=== PATIENT | male | born 1955 | race Caucasian/White ===

== ENCOUNTER 2018-07-07 09:10 | Outpatient (REF) | payer BC, SELFPAY | END 2018-07-07 09:11 | LOC: NCHCN 09:10 | PROVIDERS: PCP Internal Medicine; Visit Provider Internal Medicine | DX: I10 Essential (primary) hypertension (principal) | CPT/HCPCS: 80048 ==

== ENCOUNTER 2018-07-10 11:09 | Outpatient (REF) | payer BC, SELFPAY ==
[2018-07-10 22:03] LABS: BUN 23 mg/dL (7-18); CREATININE 1.23 mg/dL (0.70-1.30); Calcium 8.7 mg/dL (8.5-10.1); Chloride 105 mmol/L (98-107); Estimated GFR 59.82 (mL/min/1.73m2); Glucose 118 mg/dL (70-100); Potassium 4.5 mmol/L (3.5-5.1); Sodium 143 mmol/L (136-145)
== END 2018-07-10 11:10 ==
LOC: NCHCN 11:09
PROVIDERS: PCP Internal Medicine; Visit Provider Internal Medicine
DX: I10 Essential (primary) hypertension (principal)
CPT/HCPCS: 80048

== ENCOUNTER 2019-07-06 12:00 | Outpatient (REF) | payer BC, SELFPAY ==
[2019-07-06 21:00] LABS: Anion Gap 12.8 mmol/L (3-11); BUN 24 mg/dL (7-18); CO2 23.2 mmol/L (21.0-32.0); CREATININE 1.19 mg/dL (0.70-1.30); Calcium 8.8 mg/dL (8.5-10.1); Calculated LDL 118 mg/dL; Chloride 105 mmol/L (98-107); Cholesterol 193 mg/dL (50-200); Glucose 93 mg/dL (70-100); HDL Cholesterol 55 mg/dL (40-60); Potassium 4.5 mmol/L (3.5-5.1); Sodium 141 mmol/L (136-145); Triglyceride 101 mg/dL (30-150)
== END 2019-07-06 12:20 ==
LOC: NCHCN 12:00
PROVIDERS: PCP Internal Medicine; Visit Provider Internal Medicine
DX: I10 Essential (primary) hypertension (principal); M19.90 Unspecified osteoarthritis, unspecified site; E66.9 Obesity, unspecified
CPT/HCPCS: 80048; 80061; 83721

== ENCOUNTER 2020-10-03 08:55 | Outpatient (REF) | payer BC, SELFPAY ==
[2020-10-03 22:22] LABS: Anion Gap 10.3 mmol/L (3-11); BUN 26 mg/dL (7-18); CO2 26.7 mmol/L (21.0-32.0); CREATININE 1.36 mg/dL (0.70-1.30); Calcium 8.9 mg/dL (8.5-10.1); Chloride 104 mmol/L (98-107); Estimated GFR 52.93 (mL/min/1.73m2); Glucose 94 mg/dL (74-106); Potassium 4.4 mmol/L (3.5-5.1); Sodium 141 mmol/L (136-145)
== END 2020-10-03 09:15 ==
LOC: NCHCN 08:55
PROVIDERS: PCP Nurse Practitioner Family; Visit Provider Nurse Practitioner Family
DX: I10 Essential (primary) hypertension (principal)
CPT/HCPCS: 80048

== ENCOUNTER 2021-09-24 08:34 | Outpatient (REF) | payer BC, SELFPAY ==
[2021-09-24 15:48] LABS: ALT 38 U/L (16-63); AST 16 U/L (15-37); Alkaline Phosphatase 76 U/L (46-116); Anion Gap 11.5 mmol/L (3-11); BUN 25 mg/dL (7-18); Bilirubin, Total 0.4 mg/dL (0.2-1.0); CO2 27.5 mmol/L (21.0-32.0); CREATININE 1.3 mg/dL (0.70-1.30); Calcium 9.1 mg/dL (8.5-10.1); Calculated LDL 127 mg/dL (<100); Chloride 103 mmol/L (98-107); Cholesterol 210 mg/dL (<200); Estimated GFR 55.58 (mL/min/1.73m2); Glucose 95 mg/dL (74-106); HDL Cholesterol 57 mg/dL (40-60); Potassium 4.7 mmol/L (3.5-5.1); Sodium 142 mmol/L (136-145); Total Protein 7.5 g/dL (6.4-8.2); Triglyceride 130 mg/dL (<150)
== END 2021-09-24 08:35 | disposition home or self-care (01) ==
LOC: NCHCN 08:34
PROVIDERS: PCP Nurse Practitioner Family; Visit Provider Internal Medicine
DX: I10 Essential (primary) hypertension (principal); E66.9 Obesity, unspecified; Z00.00 Encounter for general adult medical examination without abnormal findings
CPT/HCPCS: 80053; 80061

== ENCOUNTER 2022-10-01 14:56 | Outpatient (REF) | payer BC, SELFPAY ==
[2022-10-04 09:21] LABS: PSA, Screening 0.6 ng/mL (<=4.5)
== END 2022-10-01 14:57 | disposition home or self-care (01) ==
LOC: NCHCN 14:56
PROVIDERS: PCP Nurse Practitioner Family; Visit Provider Internal Medicine
DX: Z12.5 Encounter for screening for malignant neoplasm of prostate (principal)
CPT/HCPCS: 80053; 80061; 84153

== ENCOUNTER 2022-10-05 16:21 | Outpatient (REF) | payer BC, SELFPAY ==
[2022-10-05 21:29] LABS: ALT 33 U/L (16-63); AST 27 U/L (15-37); Alkaline Phosphatase 76 U/L (46-116); Anion Gap 8.1 mmol/L (3-11); BUN 26 mg/dL (7-18); Bilirubin, Total 0.5 mg/dL (0.2-1.0); CO2 25.9 mmol/L (21.0-32.0); CREATININE 1.3 mg/dL (0.70-1.30); Calcium 9.1 mg/dL (8.5-10.1); Calculated LDL 56 mg/dL (<100); Chloride 105 mmol/L (98-107); Cholesterol 131 mg/dL (<200); Estimated GFR 60.96 (mL/min/1.73m2); Glucose 97 mg/dL (74-106); HDL Cholesterol 62 mg/dL (40-60); Potassium 4.2 mmol/L (3.5-5.1); Sodium 139 mmol/L (136-145); Total Protein 7.7 g/dL (6.4-8.2); Triglyceride 69 mg/dL (<150)
== END 2022-10-05 16:22 | disposition home or self-care (01) ==
LOC: NCHCN 16:21
PROVIDERS: PCP Nurse Practitioner Family; Visit Provider Internal Medicine
DX: I10 Essential (primary) hypertension (principal); E78.5 Hyperlipidemia, unspecified; Z12.5 Encounter for screening for malignant neoplasm of prostate
CPT/HCPCS: 80053; 80061

== ENCOUNTER 2023-10-07 19:43 | Outpatient (REF) | payer MEDICARE, SELFPAY ==
[2023-10-07 14:18] LABS: Anion Gap 8.6 mmol/L (3-11); BUN 27 mg/dL (7-18); CO2 27.4 mmol/L (21.0-32.0); CREATININE 1.3 mg/dL (0.70-1.30); Calcium 9.6 mg/dL (8.5-10.1); Chloride 105 mmol/L (98-107); Estimated GFR 60.59 (mL/min/1.73m2); Glucose 106 mg/dL (74-106); Potassium 4.6 mmol/L (3.5-5.1); Sodium 141 mmol/L (136-145)
== END 2023-10-07 19:44 | disposition home or self-care (01) ==
LOC: NCHCN 19:43
PROVIDERS: PCP Nurse Practitioner Family; Visit Provider Internal Medicine
DX: I10 Essential (primary) hypertension (principal)
CPT/HCPCS: 80048

== ENCOUNTER 2024-07-05 09:22 | Outpatient (REF) | payer OTHER, SELFPAY ==
--- OUTSIDE RECORDS SUMMARY | 2024-07-05 09:25 | XMS_ITS | Data Portability ---
Author Organization [place] - [facility], [facility] [place] [address] Care Team Providers Care Sealer Dry Cell Name Role Phone [facility] [employer] Assessment Encounter Date Assessment Date Assessment LastModified by Organization Details LastModified Time 10/10/2023 10/10/2023 Patient presente d to office today for their Medicare Annual Wellness Visit. Personalized preventive care plan printed and reviewed with patient. Education was provided on healthy nutrition, including a diet rich in fruits and vegetables, minimizing simple carbohydrates, salt, and saturated fats. Encouraged regular cardiovascular exercise such as walking at least 30 minutes daily, 5 times per week. Emphasized preventive health measures and educated pt on fall prevention and community-based lifestyle interventions to help reduce health risks and promote healthy living. EKG done today and was wnl He will work on lifestyle changes to address obesity and recent weight gain, return in 3 mo. [email or web address] Not available 10/10/2023 10:34:19 Plan of Treatment Reminders Order Date Submit Date Provider Last Modified By Organization Details Last Modified Time Details Appointments FASTING LABS 2023 08:00A M Not available Not available Not available Follow Up 2023 11:10A M Not available Not available Not available Lab BMP, serum or plasma 2022 023 [email or web address] [facility] (Lab Direct), [address] [place], [address], 10/07/2023 08:56:06 noninvasi ve colorecta l cancer DNA + occult blood screening , QL, stool 2022 023 [email or web address] [facility] (Cologuard Orders Only), [address], [address], [place], [address], 06/15/2024 14:56:41 CBC [address] [facility] (Registration ), [address] [place] [address] [place], [address], 07/05/2024 09:12:50 BMP, serum or plasma [address] [facility] (Registration ), [address] [place] [address] [place], [address], 07/05/2024 09:12:50 lipid panel, serum [address] [facility] (Registration ), [address] [place] [address] [place], [address], 07/05/2024 09:12:50 Referral eye care referral - needs new eye care provider. hx of HTN 2022 023 [facility] [place], [address] [facility], [facility] [address], [place], [address], 10/10/2023 16:13:12 Procedures None recorded. Surgeries None recorded. Imaging US, screening for abdominal aortic aneurysm [address] - Radiology, [address] [place] [address], [address], 03/07/2024 15:39:28 electroca rdiogram 2022 023 [email or web address] [facility], [address], [place], [address], 10/10/2023 10:17:25 Medication Orders triamcino lone acetonide 0.1 % topical ointment 2022 023 [id number], [address], [place], [place], [id number], 10/10/2023 10:40:09 celecoxib 200 mg capsule [address] [id number], [address], [place], [place], [id number], 01/11/2024 08:59:27 atorvasta tin 20 mg tablet [address] [id number], [address], [place], [place], [id number], 01/11/2024 08:59:27 Patient TargetsNo targets recorded. Patient Instructions Encounter Date Encounter Id Patient Instructions Last Modified By Organization Details Last Modified Time 10/10/2023 [id number] advance care planning: care instructions [email or web address] Not available 10/10/2023 10:17:23 medicare preventive services guide (male 74 rs and under) Not available 10/10/2023 10:17:23 Go for a walk at least once a day. Stop celebrex as a trial Try taking 2 extra strength tylenol three times a day. Try doing puzzles or word searches Clean Try fruit as a snack like an apples Use frozen vegetables instead of canned Rice cakes are another good snack Not available 10/10/2023 09:40:54 Discussed and explained advance directives such as standard forms to the {{patient caregiv er patient and caregiver}}. Face to face discussion lasted for a duration of ___ minutes. Not available 10/10/2023 09:53:08 Reason for Referral Eye Care Referral for Adult health examination needs new eye care provider. hx of HTN Referring Physician: Izzy Delgado, Internal Medicine, Encounter Date: 10/10/2023 Results Created Date Observation Date Name Description Value Unit Range Abnormal Flag LastModifiedBy Organization Detail LastModifiedTime 10/07/2010/07/2023 gluco se, QN [mass /volu me], blood glucose ser 106 mg/dL 74-106 normal Not Available [facility] [address], [place], [address], 06/22/2024 22:42:42 10/07/2010/07/2023 CMP, serum or plasm a aniongap 8.6 mmol/ L 3-11 normal Not Available Not Available 06/22/2024 22:42:41 10/07/20 23 10/07/2023 CMP, serum or plasm a BUN (blood urea nitrogen), serum or plasma 27 mg/dL 7-18 high Not Available Not Available 22:42:41 10/07/2010/07/2023 CMP, serum or plasm a calcium, qn, serum or plasma 9.6 mg/dL 8.5-10 .1 normal Not Available Not Available 06/22/2024 22:42:41 10/07/2010/07/2023 CMP, serum or plasm a chloride, serum or plasma 105 mmol/ L 98-107 normal Not Available Not Available 06/22/2024 22:42:41 10/07/2010/07/2023 CMP, serum or plasm a CO2, (carbon dioxide), total, serum or plasma 27.4 mmol/ L 21.0-3 2.0 normal Not Available Not Available 06/22/2024 22:42:41 10/07/2010/07/2023 CMP, serum or plasm a creatinine, serum or plasma 1.3 mg/dL 0.70-1 .30 normal Not Available Not Available 06/22/2024 22:42:41 10/07/20 23 10/07/2023 CMP, serum or plasm a eGFR 60.59 (?) mL/mi n/1.7 3m2 mL/min /1.73m 2 Not Available Not Available 06/22/2024 22:42:41 10/07/20 23 10/07/2023 CMP, serum or plasm a potassium, serum or plasma 4.6 mmol/ L 3.5-5. 1 normal Not Available Not Available 06/22/2024 22:42:41 10/07/20 23 10/07/2023 CMP, serum or plasm a sodium, serum or plasma 141 mmol/ L 136-14 5 normal Not Available Not Available 06/22/2024 22:42:41 10/10/20 23 10/18/2023 ricardo beyer am No observ ation record ed. [facility] [address], [place], [address], 10/18/2023 10:15:24 10/10/20 23 ricardo beyer am No observ ation record ed. Not Available 10/10/2023 10:05:46 Result Notes None recorded. Problems Name Status Onset Date Resolution Date Notes Provider Name and Address Organization Details Recorded Time Essential hypertension Active 200901/04/2019 - Comments only - Alex Ceja MD - Reasonable control on his current medication. Plan: Continue current regimen. Problem Code: I10; Problem Code Type: ICD-10; MD [address], [place], [address] , [facility] 3 20:16:47 Adult health examination Active 2009 Problem Code: Z00.00; Problem Code Type: ICD-10; MD [address]ael [address], [place], [address] , [facility] 3 20:16:47 Obesity Active 2009 Problem Code: E66.9; Problem Code Type: ICD-10; MD Isael [address], [place], [address] , [facility] 3 20:16:47 Pain of right shoulder joint Completed 201607/23/2017 Problem Code: M25.511; Problem Code Type: ICD-10; Not Available [facility] 3 05:11:51 Verruca vulgaris Completed 201612/25/2016 Problem Code: B07.8; Problem Code Type: ICD-10; Not Available [facility] 3 05:11:51 Screening for malignant neoplasm of colon Completed 201802/03/2019 Problem Code: Z12.11; Problem Code Type: ICD-10; Not Available [facility] 3 05:11:51 Chest pain Completed 201801/27/2019 01/04/2019 - Comments only - Alex Ceja MD - I do not think he is describing angina. His 10-year cardiac risk is about 10%, compounded by his positive family history. Plan: Reassurance today. I did review with him thentypical pattern for anginal pain being associated with physical effort. He knows to call if he becomes aware of such a pattern. I also offered consideration of an exercise tolerance test if symptoms persist without relief. Problem Code: R07.89; Problem Code Type: ICD-10; Not Available [facility] 3 05:11:51 Osteoarthriti s Active 2018 Problem Code: M19.90; Problem Code Type: ICD-10; MD Isael [address], [facility] [address] , [facility] 3 20:16:47 Meralgia paresthetica of left leg Completed 201901/03/2021 Problem Code: G57.12; Problem Code Type: ICD-10; Not Available [facility] 3 05:11:52 Hyperlipidemi a Active 2020 Problem Code: E78.5; Problem Code Type: ICD-10; MD Isael [address], [facility] [address] , [facility] 3 20:16:47 Screening for malignant neoplasm of prostate Active 2020 Problem Code: Z12.5; Problem Code Type: ICD-10; MD Isael [address], [facility] [address] , [facility] 3 20:16:47 Ingrowing nail Active 2021 Problem Code: L60.0; Problem Code Type: ICD-10; MD Isael [address], [facility] [address] , [facility] 3 20:16:47 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 Problem Code: H35.443; Problem Code Type: ICD-10; MD Isael [address], [address] 3 20:16:47 Regular astigmatism of left eye Active 2021 Problem Code: H52.222; Problem Code Type: ICD-10; MD Isael [address], [address] 3 20:16:47 Snoring Active 2021 Problem Code: R06.83; Problem Code Type: ICD-10; MD Isael [address], [address] 3 20:16:47 Pain of joint of knee Active 2021 Problem Code: M25.569; Problem Code Type: ICD-10; MD Isael [address], [address] 3 20:16:46 Ex-smoker Completed 200708/17/2023 Not Available [facility] 3 05:11:54 Epigastric pain Completed 201707/07/2018 Problem Code: R10.13; Problem Code Type: ICD-10; Not Available [facility] 3 05:11:54 General examination of patient Completed 200908/17/2023 Problem Code: Z00.8; Problem Code Type: ICD-10; Not Available [facility] 3 05:11:54 Hypertensive disorder Completed 200908/17/2023 Not Available [facility] 3 05:11:54 Acute conjunctiviti s Completed 201807/18/2019 Problem Code: H10.30; Problem Code Type: ICD-10; Not Available [facility] 3 05:11:55 Former light tobacco smoker Active [address], [place], [address] , [facility] 3 20:19:42 History of psoriasis Active [address], [place], [address] , [facility] 3 10:36:57 Problem Notes None recorded. Procedures Surgical History None recorded. Imaging Results Imaging Date Name Status LastModified by Organization Details LastModified Time 10/18/2023 electrocardiogram completed [id number] [facility] [address], [place], [address], 10/18/2023 10:15:24 10/10/2023 electrocardiogram completed Informa tion not available 10/10/2023 10:05:46 Procedure Notes None recorded. Medical Equipment None Reported. Allergies No known drug allergies Medications Name Sig Start Date Stop Date Status Note LastModified by Organization Details LastModified Time celecoxib 200 mg capsule TAKE 1 CAPSULE BY MOUTH EVERY DAY active Not Available Not Available No t Available atorvasta tin 20 mg tablet TAKE 1 TABLET BY MOUTH EVERY DAY active Not Available Not Available No t Available lisinopri l 20 mg-hydroc hlorothia zide 12.5 mg tablet TAKE 1 TABLET BY MOUTH DAILY active Not Available Not Available No t Available chlorthal idone 25 mg tablet take 1 tablet daily 12/17 completed Must make appointm ent to be seen by MD Not Available Not Available Not Available triamcino lone acetonide 0.1 % topical ointment APPLY THIN LAYER TOPICALL Y TO THE AFFECTED AREA TWICE DAILY active Not Available Not Available No t Available aspirin 81 mg tablet once a day 10/08 completed Not Available Not Available Not Available Baby Aspirin 81 mg chewable tablet 1 qd 2009 active Not Available Not Available Not Avai lable Aspir-81 mg tablet,de layed release 1 daily 2009 active Not Available Not Available Not Avai lable naproxen 500 mg tablet 1CAP twice daily 09/22 completed Not Available Not Available Not Available Celebrex 1CAP qd 10/26 completed Not Available Not Available Not Available Vitals Date Recorded Body height Provider Name an d Address Organization Details Last Updated DateTime 10/10/2023 179.832 cm IZZY DELGADO MD [address], [place], [address], [facility] 10/10/2023 08:22:04 Date Recorded Body mass index (BMI) Body weight Body temperature Oxygen saturation Oxygen saturation in Arterial blood by Pulse oximetry Heart rate Systolic blood pressure Diastolic blood pressure Provider Name and Address Organization Details Last Updated DateTime 3 49.2 kg/m2 192198. 2 g 98.4 [degF] 95 % 95 % 81 /min 116 mm[Hg] 82 mm[Hg] MITCH SOLANO MA [facility] 3 09:20:15 Date Recorded Body height Body mass index (BMI) Body weight Body temperature Oxygen saturation Oxygen saturation in Arterial blood by Pulse oximetry Heart rate Systolic blood pressure Diastolic blood pressure Provider Name and Address Organization Details Last Updated DateTime 4 179.832 cm 47.3 kg/m2 190166. 03 g 98.2 [degF] 96 % 96 % 89 /min 122 mm[Hg] 76 mm[Hg] BESSIE SHAIKH LPN [facility] 4 08:38:20 Social History Question Answer Notes LastModified by Organizat ion Details LastModified Time Tobacco Smoking Status Former Smoker MITCH SOLANO MA null, [facility] 10/10/2023 09:10:51 Do You Have An Advance Directive? No Information not available 10/10/2023 Are You Currently Employed? No Retired From [email or web address] Information not available 10/10/2023 What Type Of Diet Are You Following? REGULAR Information not available 10/10/2023 How Many Days Of Moderate To Strenuous Exercise, Like A Brisk Walk, Did You Do In The Last 7 Days? 0 [email or web address] Information not available 10/10/2023 When Did You Quit Smoking? 6-10yearssi [email or web address] [email or web address] Information not available 10/10/2023 What Is Your Current Pack Years? 30ormorepac [email or web address] Information not available 01/11/2024 At What Age Did You Start Smoking Tobacco? 15 [email or web address] Information not available 10/10/2023 How Much Tobacco Do You Smoke? 1 PPD Information not available 01/11/2024 How Many Years Have You Smoked Tobacco? 30 Information not available 01/11/2024 Do You Have Any Dietary Restrictions? No [email or web address] Information not available 10/10/2023 Do You Or Have You Ever Used Any Other Forms Of Tobacco Or Nicotine? No [email or web address] Information not available 10/10/2023 Sex: Male Functional Status Question Answer Note LastModified by Organization D etails LastModified Time What is your exercise level? None [email or web address] Information not available 10/10/2023 Mental Status None recorded. Family History Relationship Description Onset Age of this Age Resolved Age Notes Notes:*Problem: Mother: dece ased, 8-9 years ago age b. 1933, HTN, DJD Father: age 80 cause cancer 4 brothers: 2 w. HTN; 1 (b. 1952) s/p CABG Family History of: Medical History No medical history recorded. Immunizations Vaccine Type Date Status Provider Name and Address Organization Details Recorded Time COVID-19, mRNA, LNP-S, PF, cristine-sucrose, 30 mcg/0.3 mL 10/10/20[address] completed MD [address], [place], [address], [facility] 10/10/2023 10:37:31 Influenza, high-dose, quadrivalent, PF 10/10/2023 completed MD [address], [place], [address], [facility] 10/10/2023 10:40:03 Tdap 01/04/2019 completed Not Available [facility] 05:46:49 zoster live 07/20/2017 completed Not Available [facility] 09/30/2023 05:46:49 Influenza, split virus, quadrivalent, PF 10/02/2021 completed Not Available [facility] 09/30/2023 05:46:49 Influenza, split virus, quadrivalent, PF 10/03/2020 completed Not Available [facility] 09/30/2023 05:46:49 zoster recombinant 01/04/[address] [facility] 09/30/2023 05:46:49 zoster recombinant 07/07/[address] [facility] 09/30/2023 05:46:49 Influenza, high-dose, quadrivalent, PF 10/08/2022 completed Not Available [facility] 09/30/2023 05:46:50 COVID-19, mRNA, LNP-S, PF, 30 mcg/0.3 mL dose 12/29/2020 completed Not Available [facility] 09/30/2023 05:46:50 COVID-19, mRNA, LNP-S, PF, 30 mcg/0.3 mL dose 01/29/2021 completed Not Available [facility] 09/30/2023 05:46:50 COVID-19, mRNA, LNP-S, PF, 30 mcg/0.3 mL dose 10/02/2021 completed Not Available [facility] 09/30/2023 05:46:50 Pneumococcal conjugate PCV20, polysaccharide [id number] conjugate, adjuvant, PF 12/10/2022 completed Not Available [facility] 09/30/2023 05:46:50 COVID-19, mRNA, LNP-S, PF, 30 mcg/0.3 mL dose, cristine-sucrose 05/14/2022 completed Not Available [facility] 09/30/2023 05:46:51 COVID-19, mRNA, LNP-S, bivalent, PF, 30 mcg/0.3 mL dose 10/08/2022 completed Not Available [facility] 09/30/20 05:46:51 Past Encounters Encounter ID Performer Location Encounter Start Date Encounter Closed Date Diagnosis/Indication Diagnosis SNOMED-CT Code [id number] IZZY DELGADO MD [address] [address] 10/10/2023 07:47:47 10/10/2023 10:11:20 Adult health examination 983456906 Essential hypertension 82305649 Obesity 471883594 Screening for malignant neoplasm of colon 251722537 Ex-smoker 9635091 Active or passive immunization 670342879 History of psoriasis 161 684742 Pain of joint of knee 10 25594830 [id number] Ama Lawson [address] [address] 10/07/2023 07:33:06 10/07/2023 07:48:34 Essential hypertension 06192270 [id number] IZZY DELGADO MD [address] [address] 01/11/2024 08:18:15 01/11/2024 08:55:28 Essential hypertension 40564551 Obesity 354919966 Pain of joint of knee 10 64963011 Osteoarthritis 170874505 Hyperlipidemia 52194025 [id number] Aubrie Orozco RN [address] [address] 07/05/2024 07:49:01 07/05/2024 08:14:58 Essential hypertension 10774582 Hyperlipidemia 12667574 Health Concerns Section Related Observation LastModified by Organization Detai ls LastModified Time None Recorded Concern Status LastModified by Organization Details LastModified Time None Recorded Advance Directives Directive N: Payers Encounter Date Sequence Insurance Name Policy Number Policy Arana Covered Member ID Arana Member ID Guarantor Name 10/07/2023 1 [place] Cecilio Sheridan [id number] Cecilio Sheridan 10/10/2023 1 [place] Cecilio Sheridan [id number] Cecilio Sheridan 01/11/2024 [place] - [facility] (MEDICARE) Cecilio Sheridan [id number] Cecilio Sheridan 01/11/2024 1 [employer] (MEDICARE REPLACEMENT HMO) Cecilio Sheridan [id number] Cecilio Sheridan 07/05/2024 1 [employer] (MEDICARE REPLACEMENT HMO) Cecilio Sheridan [id number] Cecilio Sheridan Notes Date Note Type Note Provider Name and Address Organization Details Recorded Time 10/10/2023 text/html HPI Notes: Medic are Annual Wellness Visit Reported by patient. Depression Risk: never feels sad, empty, or tearful; no loss of interest in activities; no significant changes in weight; no sleep disturbances or insomnia; no agitation; no loss of energy; no feelings of worthlessness or guilt; no thoughts of suicide; no history of depression; no history of mood disorders Orientation: oriented to person, place, time Concentration and Memory: no decreased concentrating ability; no memory lapses or loss; does not forget words Speech/Motor difficulties: no speech difficulties; no difficulty expressing formulated concepts; no difficulty with fine manipulative tasks; no difficulty writing/copying; no slowed reaction time; does not knock things over when trying to pick them up Hearing: no loss of hearing Vision: no vision problems; wears reading galsses Activities of Daily Living: able to bathe with limited or no assistance; able to control urination and bowels; able to dress with limited or no assistance; able to feed self with limited or no assistance; able to get out of chair or bed with limited or no assistance; able to groom with limited or no assistance; able to toilet with limited or no assistance Instrumental Activities of Daily Living: able to do house work with limited or no assistance; able to grocery shop with limited or no assistance; able to manage medications with limited or no assistance; able to manage money with limited or no assistance; able to prepare meals with limited or no assistance; able to use the phone with limited or no assistance; able to manage transportation with limited or no assistance Falls Risk Assessment: no frequent falls while walking; no fall in the past year; no fall since last visit; no dizziness/vertigo Home Safety: no unsafe angeles hazards; no unsafe stairs; no unsafe gas appliances; working smoke/CO detectors; wears protective head gear for biking/high velocity; use of seatbelts; no high risk sexual behavior; no vision or hearing loss while driving; no firearms; has hand bars in the bathroom/shower; good lighting in the home He retired in March and has gained a lot of weight since then. He has been a lot less active since then. He plans to increase his walking. He continues on the celebrex daily for chronic knee and ankle pain. He hasn't tried tylenol for his aches and pains. IZZY DELGADO MD [address], [place], [address], [facility]. 10/10/2023 10:41:25 01/11/2024 text/html HPI Notes: Here for f/u obesity/weight gain, HTN, OA knees. He has been walking on the treadmill, getting up to 20 minutes, had been doing 4 times a week. HE has lost weight, feels good about progress. He doesn't feel the knees while on the treadmill, but afterward the knees hurt. He has backed off the treadmill recently for this reason. He is also using the peddler a couple of days a week too. the left is worse than the right. He did back off the celebrex but the pain has worsened. The tylenol is helping some but not as much, taking 1 g bid most of the time. No swelling more than usual. He has been more conscious of what he eats. No other concerns today. IZZY DELGADO MD [address], [place], [address], [facility]. 01/11/2024 09:01:07
--- OUTSIDE RECORDS SUMMARY | 2024-07-05 09:25 | XMS_ITS | Clinical Summary ---
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
--- OUTSIDE RECORDS SUMMARY | 2024-07-05 09:25 | XMS_ITS | Continuity of Care Document ---
Author Organization [place] - [facility] Address [address] [place] [address] Care Team Providers Care Contact Acid Plant Operator Helper Name Role Phone [facility] General Counselor [phone] Assessment No assessment recorded. Plan of Treatment Reminders Order Date Submit Date Provider Last Modified By Organization Details Last Modified Time Details Appointments [facility] 2023 08:00A M Not available Not available Not available Follow Up 20 2023 11:10A M Not available Not available Not available Lab CBC [address] [facility] (Registration ), [address] [place] [address] [place], [address], 07/05/2024 09:12:50 BMP, serum or plasma [address] [facility] (Registration ), [address] [place] [address] [place], [address], 07/05/2024 09:12:50 lipid panel, serum [address] [place] [address] Laboratory (Registration ), [address] [place] [address] [place], [address], 07/05/2024 09:12:50 Referral None recorded . Procedures None recorded . Surgeries None recorded . Imaging None recorded . Medication Orders None recorded . Patient TargetsNo targets recorded. Patient InstructionsNo instructions recorded. Reason for Referral Eye Care Referral for Adult health examination needs new eye care provider. hx of HTN Referring Physician: Izzy Delgado, Internal Medicine, Encounter Date: 10/10/2023 Problems Name Status Onset Date Resolution Date Notes Provider Name and Address Organization Details Recorded Time Essential hypertension Active 200901/04/2019 - Comments only - Alex Ceja MD - Reasonable control on his current medication. Plan: Continue current regimen. Problem Code: I10; Problem Code Type: ICD-10; MD Isael [address], [place], [address] , [facility] 3 20:16:47 Adult health examination Active 2009 Problem Code: Z00.00; Problem Code Type: ICD-10; MD Isael [address], [facility] [address] , [facility] 3 20:16:47 Obesity Active 2009 Problem Code: E66.9; Problem Code Type: ICD-10; MD Isael [address], [facility] [address] , [facility] 3 20:16:47 Pain of right shoulder joint Completed 201607/23/2017 Problem Code: M25.511; Problem Code Type: ICD-10; Not Available [facility] 3 05:11:51 Verruca vulgaris Completed 201612/25/2016 Problem Code: B07.8; Problem Code Type: ICD-10; Not Available [facility] 3 05:11:51 Screening for malignant neoplasm of colon Completed 201802/03/2019 Problem Code: Z12.11; Problem Code Type: ICD-10; Not Available [facility] 3 05:11:51 Chest pain Completed 201801/27/2019 01/04/2019 [...] R07.89; Problem Code Type: ICD-10; Not Available [facility] 3 05:11:51 Osteoarthriti s Active 2018 Problem Code: M19.90; Problem Code Type: ICD-10; MD Isael [address], [facility] [id number] [place] [address] 3 20:16:47 Meralgia paresthetica of left leg Completed 201901/03/2021 Problem Code: G57.12; Problem Code Type: ICD-10; Not Available [facility] 3 05:11:52 Hyperlipidemi a Active 2020 Problem Code: E78.5; Problem Code Type: ICD-10; MD Isael [address], [address] 3 20:16:47 Screening for malignant neoplasm of prostate Active 2020 Problem Code: Z12.5; Problem Code Type: ICD-10; MD Isael [address], [address] 3 20:16:47 Ingrowing nail Active 2021 Problem Code: L60.0; Problem Code Type: ICD-10; MD Isael [address], [place] [address] , [facility] 3 20:16:47 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 3 20:16:47 Snoring Active 2021 Problem Code: R06.83; Problem Code Type: ICD-10; MD Isael [address], [place], [address] , [facility] 3 20:16:47 Pain of joint of knee Active 2021 Problem Code: M25.569; Problem Code Type: ICD-10; MD Isael [address], [facility] [address] , [facility] 3 20:16:46 Ex-smoker Completed 200708/17/2023 Not Available [facility] 3 05:11:54 Epigastric pain Completed 201707/07/2018 Problem Code: R10.13; Problem Code Type: ICD-10; Not Available [facility] 3 05:11:54 General examination of patient Completed 200908/17/2023 Problem Code: Z00.8; Problem Code Type: ICD-10; Not Available [facility] 3 05:11:54 Hypertensive disorder Completed 200908/17/2023 Not Available [facility] 3 05:11:54 Acute conjunctiviti s Completed 201807/18/2019 Problem Code: H10.30; Problem Code Type: ICD-10; Not Available [facility] 3 05:11:55 Former light tobacco smoker Active [address], [place], [address] , [facility] 3 20:19:42 History of psoriasis Active [address], [place], [address] , [facility] 3 10:36:57 Problem Notes None recorded. Medical Equipment None Reported. [...] Not Available Not Available Not Available Vitals None Recorded Social History Question Answer Notes LastModified by Organizat ion Details LastModified Time Tobacco Smoking Status Former Smoker MITCH SOLANO [place] null, [place] - [facility] 10/10/2023 09:10:51 Do You Have An Advance Directive? No Information not available 10/10/2023 Are You Currently Employed? No Retired From [employer] Information not available 10/10/2023 What Type Of Diet Are You Following? REGULAR [email or web address] Information not available 10/10/2023 How Many Days Of Moderate To Strenuous Exercise, Like A Brisk Walk, Did You Do In The Last 7 Days? 0 [email or web address] Information not available 10/10/2023 When Did You Quit Smoking? 6-10yearssi ncelastciga rette [email or web address] Information not available 10/10/2023 What Is Your Current Pack Years? 30ormorepac kyears Information not available 01/11/2024 At What Age Did You Start Smoking Tobacco? 15 [email or web address] Information not available 10/10/2023 How Much Tobacco Do You Smoke? 1 PPD Information not available 01/11/2024 How Many Years Have You Smoked Tobacco? 30 Information not available 01/11/2024 Do You Have Any Dietary Restrictions? No [email or web address] Information not available 10/10/2023 Do You Or Have You Ever Used Any Other Forms Of Tobacco Or Nicotine? No [email or web address] Information not available 10/10/2023 Sex: Male Functional Status Question Answer Note LastModified by Organization D etails LastModified Time What is your exercise level? None [email or web address] Information not available 10/10/2023 Mental Status None [...] mL 10/10/2023 completed MD [address], [place], [address], [facility] 10/10/2023 10:37:31 Influenza, high-dose, quadrivalent, PF 10/10/2023 completed MD [address]ael [address], [place], [address], [facility] 10/10/2023 10:40:03 Tdap 01/04/2019 completed Not Available [facility] 05:46:49 zoster live 07/20/2017 completed Not Available [facility] 09/30/2023 05:46:49 Influenza, split virus, quadrivalent, PF 10/02/2021 completed Not Available [facility] 09/30/2023 05:46:49 Influenza, split virus, quadrivalent, PF 10/03/2020 completed Not Available [facility] 09/30/2023 05:46:49 zoster recombinant 01/04/2019 completed Not Available [facility] 09/30/2023 05:46:49 zoster recombinant 07/07/2018 completed Not Available [facility] 09/30/2023 05:46:49 Influenza, high-dose, quadrivalent, PF 10/08/2022 completed Not Available [facility] 09/30/2023 05:46:50 COVID-19, mRNA, LNP-S, PF, 30 mcg/0.3 mL dose 12/29/2020 completed Not Available [facility] 09/30/2023 05:46:50 COVID-19, mRNA, LNP-S, PF, 30 mcg/0.3 mL dose 01/29/2021 completed Not Available [facility] 09/30/2023 05:46:50 COVID-19, mRNA, LNP-S, PF, 30 mcg/0.3 mL dose 10/02/2021 completed Not Available [facility] 09/30/2023 05:46:50 Pneumococcal conjugate PCV20, polysaccharide [id number] conjugate, adjuvant, PF 12/10/2022 completed Not Available [facility] 09/30/2023 05:46:50 COVID-19, mRNA, LNP-S, PF, 30 mcg/0.3 mL dose, cristine-sucrose 05/14/2022 completed Not Available [facility] 09/30/2023 05:46:51 COVID-19, mRNA, LNP-S, bivalent, PF, 30 mcg/0.3 mL dose 10/08/2022 completed Not Available [facility] 09/30/20 05:46:51 Past Encounters Encounter ID Performer Location Encounter Start Date Encounter Closed Date Diagnosis/Indication Diagnosis SNOMED-CT Code [id number] Aubrie Orozco RN [address] [address] 07/05/2024 07:49:01 07/05/2024 08:14:58 Essential hypertension [id number] Hyperlipidemia [id number] Health Concerns Section Related Observation LastModified by Organization Detai ls LastModified Time None Recorded Concern Status LastModified by Organization Details LastModified Time None Recorded Payers Encounter Date Sequence Insurance Name Policy Number Policy Arana Covered Member ID Arana Member ID Guarantor Name 07/05/2024 1 [facility] (MEDICARE REPLACEMENT HMO) Cecilio Sheridan [id number] Cecilio Sheridan
--- OUTSIDE RECORDS SUMMARY | 2024-07-05 09:25 | XMS_ITS | Encounter Summary ---
Author Organization [facility] Address [address] [place] [address] Care Team Providers Care Staff Reporter Name Role Phone Unavailable Primary Care Provider Unavailabl e Encounter Details Date Type Department Care Team (Late st Contact Info) Description 10/02/2022 Lab Requisition [facility] Pathology & Laboratory Medicine - [facility] [address] [place] [address] Outr Resulting Lab, Provider Social History Tobacco Use Types Packs/Day Years Used Date Smoking Tobacco: Never Assessed Sex and Gender Information Value Date Recorded Sex Assigned at Not on file Gender Identity Not on file Sexual Orientation Not on file documented as of this encounter Plan of Treatment Not on file documented as of this encounter Procedures Procedure Name Priority Date/Time Associated Diagnosis Comments PSA TOTAL, DIAGNOSTIC Routine 10/01/2022 7:25 EST documented in this encounter Results * PSA TOTAL, DIAGNOSTIC (10/01/2022 7:25 EST) PSA 0.6 <=4.5 ng/mL 10/04/2022 9:16 EST [facility] Blood VENOUS BLOOD / Unknown 10/01/2022 7:25 EST 10/03/2022 17:15 EST Narrative [facility] - 10/04/2022 9:16 EST NOTE: Serum PSA concentration should not be interpreted as absolute evidence for the presence or absence of malignant disease. Assayed on Siemens ADVIA Centaur XPT using chemiluminescent technology.??Values obtained by using different assay methods cannot be used interchangeably. Provider Outr Resulting Lab CHEMISTRY & BLOOD GAS ORDERABLES [facility] [address] [place] [address] documented in this encounter Visit Diagnoses Not on filedocumented in this encounter
--- OUTSIDE RECORDS SUMMARY | 2024-07-05 09:25 | XMS_ITS | Referral Summary ---
Author Organization [facility] Address [address] [place] [address] Care Team Providers Care Svp Chief Marketing Officer Name Role Phone Unavailable Primary Care Provider Unavailabl e Social History Tobacco Use Types Packs/Day Years Used Date Smoking Tobacco: Never Assessed Sex and Gender Information Value Date Recorded Sex Assigned at Not on file Gender Identity Not on file Sexual Orientation Not on file Plan of Treatment Not on file
--- OUTSIDE RECORDS SUMMARY | 2024-07-05 09:25 | XMS_ITS ---
Author Organization Unknown Address [address] [place] [phone] Phone Care Team Providers Care Commercial Sales Specialist Name Role Phone NESS Baires Attending Unavailable Social History Type Status Start Date End Date Code Code Syst em Smoking History Former smoker [id number] SNOMED CT Sex Male Hospital Discharge Instructions Should you have any questions prior to discharge, please contact a member of your healthcare team. If you have left the hospital and have any questions, please contact your primary care physician. Reason For Referral No Data Found Plan of Treatment No Data Found Encounters Encounter Diagnosis Start Date Code Code Sys tem Ingrowing nail 11/26/2021 [id number] SNOMED-CT Personal Care Team Section Performer Name Performer Role Active Date Inactive Da te
[2024-07-05 14:30] LABS: HCT 42.9 % (40.0-50.0); HGB 14.5 g/dL (13.5-17.5); MCH 30.1 pg (27.0-33.0); MCHC 33.8 % (32.0-36.0); MCV 89 fL (80-95); MPV 9.9 fL (8.0-11.0); Platelet Count 218 10^3/uL (130-400); RBC 4.81 10^6/uL (4.36-5.78); RDW 13.3 % (11.8-14.1); RDW-SD 43.5 fL; WBC 7.17 10^3/uL (4.4-10.8)
[2024-07-05 18:07] LABS: BUN 23 mg/dL (7-18); CREATININE 1.3 mg/dL (0.70-1.30); Calcium 9.5 mg/dL (8.5-10.1); Calculated LDL 60 mg/dL (<100); Chloride 104 mmol/L (98-107); Cholesterol 135 mg/dL (<200); Estimated GFR 60.21 (mL/min/1.73m2); Glucose 107 mg/dL (74-106); HDL Cholesterol 54 mg/dL (40-60); Potassium 4.4 mmol/L (3.5-5.1); Sodium 141 mmol/L (136-145); Triglyceride 109 mg/dL (<150)
== END 2024-07-05 09:23 | disposition home or self-care (01) ==
LOC: NCHCN 09:22
PROVIDERS: PCP Nurse Practitioner Family; Visit Provider Internal Medicine
DX: I10 Essential (primary) hypertension (principal)
CPT/HCPCS: 80048; 80061; 85027

== ENCOUNTER 2025-04-24 14:15 | Outpatient (REF) | payer MEDICARE, SELFPAY ==
--- NOTE | 2025-04-24 11:30 | SKI_PTH ---
PATIENT: Cecilio Sheridan LOC: [facility]#:[id number] AGE/SX: 70/M ROOM: RE04/24/[address]: Izzy Delgado : 1955 BED: DIS: 04/24/2025 SPEC #: [id number] RECD: 04/24/25 17:11 STATUS: TONI COOK #: [id number] DANY: 04/24/25 11:[address]: Izzy Delgado DEPT: Surgical Specimen RECD BY: Nida Rowe ENTERED: 04/24/25 17:11 SP TYPE: JES OT DR: Lory Hussein Tissues: 1 - SKIN BIOPSY(SHAVE/PUNCH) Procedures: SKIN LEVEL 4 Comments: [id number]
== END 2025-04-24 14:16 | disposition home or self-care (01) ==
LOC: NCHCN 14:15
PROVIDERS: PCP Nurse Practitioner Family; Visit Provider Internal Medicine
DX: B07.9 Viral wart, unspecified (principal)
CPT/HCPCS: 88305

== ENCOUNTER 2025-10-14 09:40 | Outpatient (REF) | payer MEDICARE, SELFPAY ==
[2025-10-14 15:47] LABS: HCT 47.1 % (40.0-50.0); HGB 15.4 g/dL (13.5-17.5); MCH 30.3 pg (27.0-33.0); MCHC 32.7 % (32.0-36.0); MCV 93 fL (80-95); MPV 9.9 fL (8.0-11.0); Platelet Count 265 10^3/uL (130-400); RBC 5.08 10^6/uL (4.36-5.78); RDW 13.3 % (11.8-14.1); RDW-SD 45.2 fL; WBC 7.28 10^3/uL (4.4-10.8)
[2025-10-14 16:28] LABS: ALT 32 U/L (10-49); AST 24 U/L (<34); Albumin 4.9 g/dL (3.4-5.0); Alkaline Phosphatase 86 U/L (46-116); Anion Gap 6.3 mmol/L (3-11); BUN 22 mg/dL (9-23); Bilirubin, Total 0.50 mg/dL (0.2-1.2); CO2 28.7 mmol/L (20.0-31.0); Calcium 9.8 mg/dL (8.3-10.6); Chloride 106 mmol/L (98-107); Cholesterol 156 mg/dL (<200); Glucose 103 mg/dL (74-106); HDL Cholesterol 56 mg/dL (>40); Potassium 5.2 mmol/L (3.5-5.1); Sodium 141 mmol/L (136-145); Total Protein 8.2 g/dL (5.7-8.2)
[2025-10-14 23:02] LABS: PSA, Screening 0.8 ng/mL (<=4.5)
== END 2025-10-14 09:41 | disposition home or self-care (01) ==
LOC: NCHCN 09:40
PROVIDERS: Internal Medicine; PCP Nurse Practitioner Family; Visit Provider Nurse Practitioner Family
DX: Z12.5 Encounter for screening for malignant neoplasm of prostate (principal); E78.5 Hyperlipidemia, unspecified; I10 Essential (primary) hypertension
CPT/HCPCS: 80053; 80061; 84153; 85027

== ENCOUNTER 2025-10-21 12:03 | Outpatient (REF) | payer MEDICARE, SELFPAY ==
[2025-10-21 15:34] LABS: Microalb ug/mg Crea 11.1 ug/mg Cr
== END 2025-10-21 12:04 | disposition home or self-care (01) ==
LOC: NCHCN 12:03
PROVIDERS: PCP Nurse Practitioner Family; Visit Provider Internal Medicine
DX: I10 Essential (primary) hypertension (principal)
CPT/HCPCS: 82043; 82570